=== PATIENT | female | born 1965 | race Two or more races ===

== ENCOUNTER 2017-09-20 13:10 | Outpatient (CLI) | payer OTHER ==
[~2017-09-20 13:10] MED LIST: ORPH100T PO; PERCOCET 5/321 UDTAB PO
== END 2017-09-20 13:30 | disposition home or self-care (01) ==
LOC: NUCLEAR 13:10
DX: I80.223 Phlebitis and thrombophlebitis of popliteal vein, bilateral (principal); D68.2 Hereditary deficiency of other clotting factors; D68.51 Activated protein C resistance; D68.52 Prothrombin gene mutation; D68.8 Other specified coagulation defects; D68.9 Coagulation defect, unspecified; J70.9 Respiratory conditions due to unspecified external agent

== ENCOUNTER 2017-10-02 10:15 | Outpatient (CLI) | payer OTHER | END 2017-10-02 10:20 | disposition home or self-care (01) | LOC: NUCLEAR 10:15 | DX: I73.9 Peripheral vascular disease, unspecified (principal); D68.52 Prothrombin gene mutation; D68.51 Activated protein C resistance; D68.62 Lupus anticoagulant syndrome; D68.8 Other specified coagulation defects; J70.9 Respiratory conditions due to unspecified external agent; I80.223 Phlebitis and thrombophlebitis of popliteal vein, bilateral; I68.2 Cerebral arteritis in other diseases classified elsewhere ==

== ENCOUNTER 2017-11-26 14:06 | Outpatient (CLI) | payer OTHER | END 2017-11-26 14:26 | disposition home or self-care (01) | LOC: MAMO-SONO 14:06 | DX: Z12.31 Encounter for screening mammogram for malignant neoplasm of breast (principal); I80.223 Phlebitis and thrombophlebitis of popliteal vein, bilateral; D68.2 Hereditary deficiency of other clotting factors; D68.51 Activated protein C resistance; D68.52 Prothrombin gene mutation; D68.62 Lupus anticoagulant syndrome; D68.8 Other specified coagulation defects; J70.9 Respiratory conditions due to unspecified external agent; M81.0 Age-related osteoporosis without current pathological fracture; Z01.01 Encounter for examination of eyes and vision with abnormal findings; N64.89 Other specified disorders of breast; Z12.39 Encounter for other screening for malignant neoplasm of breast ==

== ENCOUNTER 2018-04-02 11:32 | Emergency (ER) | payer OTHER ==
[~2018-04-02] VITALS: Ht 157.5 cm; Wt 43.5 kg
== END 2018-04-02 14:48 | disposition home or self-care (01) ==
LOC: ER 11:32
DX: M79.662 Pain in left lower leg (principal); M25.562 Pain in left knee

== ENCOUNTER 2018-04-05 08:31 | Outpatient (CLI) | payer OTHER | END 2018-04-05 09:23 | disposition home or self-care (01) | LOC: MRI 08:31 | DX: S83.92XA Sprain of unspecified site of left knee, initial encounter (principal); S83.402A Sprain of unspecified collateral ligament of left knee, initial encounter | CPT/HCPCS: 73721 ==

== ENCOUNTER 2018-05-22 09:39 | Outpatient (CLI) | payer OTHER | END 2018-05-22 09:49 | disposition home or self-care (01) | LOC: MAMO-SONO 09:39 | DX: Z12.31 Encounter for screening mammogram for malignant neoplasm of breast (principal); Z12.39 Encounter for other screening for malignant neoplasm of breast; Z01.01 Encounter for examination of eyes and vision with abnormal findings; I80.223 Phlebitis and thrombophlebitis of popliteal vein, bilateral; D68.2 Hereditary deficiency of other clotting factors; D68.51 Activated protein C resistance; D68.52 Prothrombin gene mutation; D68.8 Other specified coagulation defects; J70.9 Respiratory conditions due to unspecified external agent; M81.0 Age-related osteoporosis without current pathological fracture ==

== ENCOUNTER → 2019-05-21 | Outpatient (CLI) | payer OTHER | END | disposition home or self-care (01) | LOC: RAD 12:11 | DX: R13.19 Other dysphagia (principal); N63.11 Unspecified lump in the right breast, upper outer quadrant; R07.89 Other chest pain ==

== ENCOUNTER 2019-05-31 07:00 | Day surgery (SDC) | payer OTHER | END 2019-05-31 10:00 | disposition home or self-care (01) | LOC: AMB-ENDOS 07:00 | DX: K59.09 Other constipation (principal); K64.4 Residual hemorrhoidal skin tags; Z12.11 Encounter for screening for malignant neoplasm of colon ==

== ENCOUNTER 2019-09-01 11:06 | Outpatient (CLI) | payer OTHER | END 2019-09-01 11:08 | disposition home or self-care (01) | LOC: SONOGRAMA 11:06 | DX: M81.0 Age-related osteoporosis without current pathological fracture (principal); J70.9 Respiratory conditions due to unspecified external agent; M32.10 Systemic lupus erythematosus, organ or system involvement unspecified; D68.2 Hereditary deficiency of other clotting factors; D68.52 Prothrombin gene mutation; D68.8 Other specified coagulation defects; M54.5 Low back pain; M89.8X8 Other specified disorders of bone, other site; J01.90 Acute sinusitis, unspecified; J32.8 Other chronic sinusitis; J40 Bronchitis, not specified as acute or chronic; K80.12 Calculus of gallbladder with acute and chronic cholecystitis without obstruction ==

== ENCOUNTER 2019-09-04 12:53 | Outpatient (CLI) | payer OTHER | END 2019-09-04 13:02 | disposition home or self-care (01) | LOC: MAMO-SONO 12:53 | DX: Z12.31 Encounter for screening mammogram for malignant neoplasm of breast (principal); Z87.898 Personal history of other specified conditions; M81.0 Age-related osteoporosis without current pathological fracture; J70.8 Respiratory conditions due to other specified external agents; M32.10 Systemic lupus erythematosus, organ or system involvement unspecified; D68.2 Hereditary deficiency of other clotting factors; D68.52 Prothrombin gene mutation; D68.8 Other specified coagulation defects; M54.5 Low back pain; M89.8X8 Other specified disorders of bone, other site; J01.90 Acute sinusitis, unspecified; J32.8 Other chronic sinusitis; J40 Bronchitis, not specified as acute or chronic; K80.12 Calculus of gallbladder with acute and chronic cholecystitis without obstruction; N60.11 Diffuse cystic mastopathy of right breast; N60.12 Diffuse cystic mastopathy of left breast; N63.10 Unspecified lump in the right breast, unspecified quadrant; N63.20 Unspecified lump in the left breast, unspecified quadrant ==

== ENCOUNTER 2019-12-29 11:36 | Outpatient (CLI) | payer OTHER | END 2019-12-29 13:02 | disposition home or self-care (01) | LOC: NUCLEAR 11:36 | PROVIDERS: ATTEND Internal Medicine | DX: R54 Age-related physical debility (principal); R53.81 Other malaise; R94.31 Abnormal electrocardiogram [ECG] [EKG] ==

== ENCOUNTER 2019-12-29 20:02 | Emergency (ER) | payer OTHER ==
[~2019-12-29] VITALS: Ht 147.3 cm; Wt 49.9 kg
== END 2019-12-29 21:31 | disposition home or self-care (01) ==
LOC: ER 20:02
DX: R06.02 Shortness of breath (principal); Z03.818 Encounter for observation for suspected exposure to other biological agents ruled out

== ENCOUNTER 2019-12-30 07:30 | Outpatient (CLI) | payer OTHER | END 2019-12-30 07:32 | disposition home or self-care (01) | LOC: NUCLEAR 07:30 | PROVIDERS: ATTEND Internal Medicine Cardiovascular Disease | DX: R53.81 Other malaise (principal); R42 Dizziness and giddiness; R94.31 Abnormal electrocardiogram [ECG] [EKG] ==

== ENCOUNTER 2019-12-30 09:47 | Outpatient (CLI) | payer OTHER | END 2019-12-30 09:50 | disposition home or self-care (01) | LOC: TOM 09:47 | PROVIDERS: ATTEND Radiology Diagnostic Radiology | DX: I26.99 Other pulmonary embolism without acute cor pulmonale (principal) ==

== ENCOUNTER 2020-03-15 13:08 | Emergency (ER) | payer OTHER ==
[~2020-03-15] VITALS: Ht 157.5 cm; Wt 59.0 kg
[2020-03-15] MEDS ORDERED: XARELTO10 MG (14:18)
== END 2020-03-15 19:43 | disposition home or self-care (01) ==
LOC: ER 13:08 → EMR PED 13:08 → ER 13:45
DX: U07.1 COVID-19 (principal); J12.89 Other viral pneumonia

== ENCOUNTER 2020-03-20 10:45 | Emergency (ER) | payer OTHER ==
[~2020-03-20] VITALS: Ht 160 cm; Wt 59.0 kg
[~2020-03-20 10:45] MED LIST changes: +XARELTO10 MG
== END 2020-03-20 15:41 | disposition home or self-care (01) ==
LOC: ER 10:45
DX: U07.1 COVID-19 (principal)

== ENCOUNTER 2020-04-18 17:36 | Emergency (ER) | payer OTHER ==
[~2020-04-18] VITALS: Ht 160 cm; Wt 59.0 kg
== END 2020-04-18 18:57 | disposition home or self-care (01) ==
LOC: ER 17:36
DX: S93.401A Sprain of unspecified ligament of right ankle, initial encounter (principal); X50.9XXA Other and unspecified overexertion or strenuous movements or postures, initial encounter; X50.0XXA Overexertion from strenuous movement or load, initial encounter; Y93.89 Activity, other specified; Y92.89 Other specified places as the place of occurrence of the external cause; Y99.8 Other external cause status

== ENCOUNTER → 2020-04-28 07:01 | Outpatient (CLI) | payer OTHER | END | disposition home or self-care (01) | LOC: LAB 07:01 | PROVIDERS: ATTEND Internal Medicine | DX: D68.8 Other specified coagulation defects (principal); D68.61 Antiphospholipid syndrome; E72.12 Methylenetetrahydrofolate reductase deficiency ==

== ENCOUNTER → 2020-08-12 | Outpatient (CLI) | payer OTHER | END | disposition home or self-care (01) | LOC: MAMO-SONO 09:41 | PROVIDERS: ATTEND Emergency Medicine Pediatric Emergency Medicine | DX: Z12.31 Encounter for screening mammogram for malignant neoplasm of breast (principal); N64.59 Other signs and symptoms in breast; M81.0 Age-related osteoporosis without current pathological fracture; J70.8 Respiratory conditions due to other specified external agents; M32.10 Systemic lupus erythematosus, organ or system involvement unspecified; D68.2 Hereditary deficiency of other clotting factors; D68.52 Prothrombin gene mutation; D68.8 Other specified coagulation defects; M54.5 Low back pain; J01.90 Acute sinusitis, unspecified; M89.8X8 Other specified disorders of bone, other site; K80.12 Calculus of gallbladder with acute and chronic cholecystitis without obstruction; J40 Bronchitis, not specified as acute or chronic; J32.8 Other chronic sinusitis ==

== ENCOUNTER 2020-10-19 10:55 | Outpatient (CLI) | payer OTHER | END 2020-10-19 10:59 | disposition home or self-care (01) | LOC: NUCLEAR 10:55 | PROVIDERS: ATTEND Internal Medicine | DX: M81.0 Age-related osteoporosis without current pathological fracture (principal); M32.10 Systemic lupus erythematosus, organ or system involvement unspecified; M89.9 Disorder of bone, unspecified; M54.5 Low back pain; D68.2 Hereditary deficiency of other clotting factors; D68.9 Coagulation defect, unspecified ==

== ENCOUNTER → 2020-11-10 08:00 | Outpatient (CLI) | payer OTHER | END | disposition home or self-care (01) | LOC: LAB 08:00 | PROVIDERS: ATTEND Internal Medicine | DX: M81.0 Age-related osteoporosis without current pathological fracture (principal); J70.8 Respiratory conditions due to other specified external agents; M32.10 Systemic lupus erythematosus, organ or system involvement unspecified; D68.2 Hereditary deficiency of other clotting factors; D68.52 Prothrombin gene mutation; D68.8 Other specified coagulation defects; M54.5 Low back pain; M89.8X0 Other specified disorders of bone, multiple sites; J01.90 Acute sinusitis, unspecified; J32.8 Other chronic sinusitis; J40 Bronchitis, not specified as acute or chronic; K80.12 Calculus of gallbladder with acute and chronic cholecystitis without obstruction; K80.20 Calculus of gallbladder without cholecystitis without obstruction; Z12.31 Encounter for screening mammogram for malignant neoplasm of breast; N63.10 Unspecified lump in the right breast, unspecified quadrant; N60.11 Diffuse cystic mastopathy of right breast; N60.12 Diffuse cystic mastopathy of left breast; J09.X2 Influenza due to identified novel influenza A virus with other respiratory manifestations; J11.1 Influenza due to unidentified influenza virus with other respiratory manifestations; A49.3 Mycoplasma infection, unspecified site; J20.0 Acute bronchitis due to Mycoplasma pneumoniae; Z20.828 Contact with and (suspected) exposure to other viral communicable diseases; Z03.818 Encounter for observation for suspected exposure to other biological agents ruled out; E16.2 Hypoglycemia, unspecified; Z13.820 Encounter for screening for osteoporosis ==

== ENCOUNTER → 2021-01-04 | Outpatient (CLI) | payer OTHER | END | disposition home or self-care (01) | LOC: TOM 15:49 | PROVIDERS: ATTEND Internal Medicine | DX: R06.02 Shortness of breath (principal) ==

== ENCOUNTER → 2021-01-05 | Outpatient (CLI) | payer OTHER | END | disposition home or self-care (01) | LOC: TOM 09:24 | PROVIDERS: ATTEND Internal Medicine | DX: R06.02 Shortness of breath (principal); D68.2 Hereditary deficiency of other clotting factors; D68.52 Prothrombin gene mutation; J32.9 Chronic sinusitis, unspecified; J40 Bronchitis, not specified as acute or chronic; K80.12 Calculus of gallbladder with acute and chronic cholecystitis without obstruction ==

== ENCOUNTER 2021-02-23 14:31 | Emergency (ER) | payer OTHER ==
[~2021-02-23] VITALS: Ht 160 cm; Wt 60.8 kg
== END 2021-02-23 16:38 | disposition home or self-care (01) ==
LOC: ER 14:31
DX: Z20.822 Contact with and (suspected) exposure to COVID-19 (principal)

== ENCOUNTER 2021-03-10 08:00 | Outpatient (CLI) | payer OTHER | END 2021-03-10 08:30 | disposition home or self-care (01) | LOC: PPH VACUNA 08:00 | DX: Z23 Encounter for immunization (principal) ==

== ENCOUNTER 2021-07-07 10:03 | Emergency (ER) | payer OTHER ==
[~2021-07-07] VITALS: Ht 160 cm; Wt 59.9 kg
[2021-07-07] MEDS ORDERED: XARELTO20 MG PO (10:41)
== END 2021-07-07 13:29 | disposition home or self-care (01) ==
LOC: ER 10:03
DX: B34.9 Viral infection, unspecified (principal); Z20.822 Contact with and (suspected) exposure to COVID-19

== ENCOUNTER 2021-10-13 08:00 | Outpatient (CLI) | payer OTHER ==
[~2021-10-13 08:00] MED LIST changes: +XARELTO20 MG PO
== END 2021-10-13 08:30 | disposition home or self-care (01) ==
LOC: PPH VACUNA 08:00
PROVIDERS: ATTEND Emergency Medicine Pediatric Emergency Medicine
DX: Z23 Encounter for immunization (principal)

== ENCOUNTER 2022-02-21 10:22 | Outpatient (CLI) | payer OTHER | END 2022-02-21 11:02 | disposition home or self-care (01) | LOC: MAMO-SONO 10:22 | PROVIDERS: ATTEND Internal Medicine | DX: Z12.31 Encounter for screening mammogram for malignant neoplasm of breast (principal); N60.11 Diffuse cystic mastopathy of right breast; N60.12 Diffuse cystic mastopathy of left breast; N63.10 Unspecified lump in the right breast, unspecified quadrant ==

== ENCOUNTER 2022-07-03 10:41 | Outpatient (CLI) | payer OTHER | END 2022-07-03 10:51 | disposition home or self-care (01) | LOC: PPH VACUNA 10:41 | PROVIDERS: ATTEND Emergency Medicine Pediatric Emergency Medicine | DX: Z23 Encounter for immunization (principal) ==

== ENCOUNTER 2022-07-25 11:49 | Outpatient (CLI) | payer OTHER | END 2022-07-25 12:44 | disposition home or self-care (01) | LOC: TOM 11:49 | PROVIDERS: ATTEND Internal Medicine | DX: N60.11 Diffuse cystic mastopathy of right breast (principal); N60.12 Diffuse cystic mastopathy of left breast; N63.10 Unspecified lump in the right breast, unspecified quadrant ==

== ENCOUNTER 2022-10-26 13:21 | Outpatient (CLI) | payer OTHER | END 2022-10-26 13:33 | disposition home or self-care (01) | LOC: TOM 13:21 | PROVIDERS: ATTEND Internal Medicine | DX: J32.0 Chronic maxillary sinusitis (principal) ==

== ENCOUNTER 2022-11-14 07:32 | Outpatient (CLI) | payer OTHER | END 2022-11-14 09:34 | disposition home or self-care (01) | LOC: MAMO-SONO 07:32 | PROVIDERS: ATTEND Internal Medicine | DX: N60.11 Diffuse cystic mastopathy of right breast (principal); N60.12 Diffuse cystic mastopathy of left breast; N63.10 Unspecified lump in the right breast, unspecified quadrant; R22.2 Localized swelling, mass and lump, trunk ==

== ENCOUNTER 2022-11-28 07:20 | Outpatient (CLI) | payer OTHER | END 2022-11-28 07:45 | disposition home or self-care (01) | LOC: RAD 07:20 | PROVIDERS: ATTEND Internal Medicine | DX: Z01.818 Encounter for other preprocedural examination (principal); J32.1 Chronic frontal sinusitis; J32.0 Chronic maxillary sinusitis ==

== ENCOUNTER 2022-12-04 07:13 | Outpatient (CLI) | payer OTHER | END 2022-12-04 07:18 | disposition home or self-care (01) | LOC: LAB 07:13 | PROVIDERS: ATTEND Otolaryngology | DX: R05.8 Other specified cough (principal) ==

== ENCOUNTER 2022-12-04 16:43 | Emergency (ER) | payer OTHER ==
[~2022-12-04] VITALS: Ht 160 cm; Wt 61.2 kg
== END 2022-12-04 20:23 | disposition home or self-care (01) ==
LOC: ER 16:43
DX: U07.1 COVID-19 (principal); R51.9 Headache, unspecified; Z88.6 Allergy status to analgesic agent

== ENCOUNTER 2023-01-04 15:04 | Outpatient (CLI) | payer OTHER | END 2023-01-04 15:05 | disposition home or self-care (01) | LOC: LAB 15:04 | PROVIDERS: ATTEND Internal Medicine | DX: Z01.810 Encounter for preprocedural cardiovascular examination (principal); N60.11 Diffuse cystic mastopathy of right breast; N60.12 Diffuse cystic mastopathy of left breast; N63.10 Unspecified lump in the right breast, unspecified quadrant; D68.62 Lupus anticoagulant syndrome; D68.9 Coagulation defect, unspecified; I73.9 Peripheral vascular disease, unspecified; E88.81 Metabolic syndrome and other insulin resistance; Z13.820 Encounter for screening for osteoporosis ==

== ENCOUNTER 2023-01-08 07:04 | Outpatient (CLI) | payer OTHER | END 2023-01-08 08:12 | disposition home or self-care (01) | LOC: LAB 07:04 | DX: R05.9 Cough, unspecified (principal) ==

== ENCOUNTER 2023-05-11 08:11 | Outpatient (CLI) | payer OTHER | END 2023-05-11 09:45 | disposition home or self-care (01) | LOC: SONOGRAMA 08:11 | PROVIDERS: ATTEND Internal Medicine | DX: M71.21 Synovial cyst of popliteal space [Baker], right knee (principal) ==

== ENCOUNTER 2023-10-25 07:57 | Outpatient (CLI) | payer OTHER | END 2023-10-25 09:12 | disposition home or self-care (01) | LOC: TOM 07:57 | PROVIDERS: ATTEND Internal Medicine | DX: N60.11 Diffuse cystic mastopathy of right breast (principal); N60.12 Diffuse cystic mastopathy of left breast; N63.10 Unspecified lump in the right breast, unspecified quadrant; Z01.810 Encounter for preprocedural cardiovascular examination; D68.62 Lupus anticoagulant syndrome; D68.9 Coagulation defect, unspecified; I73.9 Peripheral vascular disease, unspecified; E88.810 Metabolic syndrome; K21.9 Gastro-esophageal reflux disease without esophagitis; J32.9 Chronic sinusitis, unspecified; N63.12 Unspecified lump in the right breast, upper inner quadrant; N63.11 Unspecified lump in the right breast, upper outer quadrant ==

== ENCOUNTER 2024-01-30 11:20 | Outpatient (CLI) | payer OTHER | END 2024-01-30 13:45 | disposition home or self-care (01) | LOC: RAD 11:20 | PROVIDERS: ATTEND Internal Medicine | DX: N60.11 Diffuse cystic mastopathy of right breast (principal); N60.12 Diffuse cystic mastopathy of left breast; N63.10 Unspecified lump in the right breast, unspecified quadrant; Z01.810 Encounter for preprocedural cardiovascular examination; D68.62 Lupus anticoagulant syndrome; D68.9 Coagulation defect, unspecified; I73.9 Peripheral vascular disease, unspecified; K21.9 Gastro-esophageal reflux disease without esophagitis; J32.9 Chronic sinusitis, unspecified; N39.0 Urinary tract infection, site not specified; Z20.822 Contact with and (suspected) exposure to COVID-19 ==

== ENCOUNTER 2024-07-01 08:32 | Outpatient (CLI) | payer OTHER | END 2024-07-01 08:50 | disposition home or self-care (01) | LOC: RAD 08:32 | PROVIDERS: ATTEND Internal Medicine | DX: J32.9 Chronic sinusitis, unspecified (principal); J40 Bronchitis, not specified as acute or chronic; J45.998 Other asthma; J42 Unspecified chronic bronchitis; N63.12 Unspecified lump in the right breast, upper inner quadrant; N63.11 Unspecified lump in the right breast, upper outer quadrant; Z12.31 Encounter for screening mammogram for malignant neoplasm of breast ==

== ENCOUNTER 2024-08-18 12:09 | Outpatient (CLI) | payer OTHER | END 2024-08-18 13:04 | disposition home or self-care (01) | LOC: TOM 12:09 | PROVIDERS: ATTEND Internal Medicine | DX: J32.9 Chronic sinusitis, unspecified (principal); J40 Bronchitis, not specified as acute or chronic; J45.998 Other asthma; J42 Unspecified chronic bronchitis; D68.52 Prothrombin gene mutation; D68.62 Lupus anticoagulant syndrome; D68.8 Other specified coagulation defects; D68.9 Coagulation defect, unspecified; I73.9 Peripheral vascular disease, unspecified; I80.223 Phlebitis and thrombophlebitis of popliteal vein, bilateral; N63.12 Unspecified lump in the right breast, upper inner quadrant; N63.11 Unspecified lump in the right breast, upper outer quadrant ==

== ENCOUNTER 2024-08-25 08:00 | Outpatient (CLI) | payer OTHER | END 2024-08-25 08:01 | disposition home or self-care (01) | LOC: NUCLEAR 08:00 | PROVIDERS: ATTEND Internal Medicine | DX: I73.9 Peripheral vascular disease, unspecified (principal); I80.223 Phlebitis and thrombophlebitis of popliteal vein, bilateral ==

== ENCOUNTER 2024-10-23 14:17 | Outpatient (CLI) | payer OTHER | END 2024-10-23 14:43 | disposition home or self-care (01) | LOC: TOM 14:17 | PROVIDERS: ATTEND Otolaryngology | DX: R09.81 Nasal congestion (principal); J34.2 Deviated nasal septum; J34.3 Hypertrophy of nasal turbinates ==

== ENCOUNTER → 2024-12-16 | Outpatient (CLI) | payer OTHER | END | disposition home or self-care (01) | LOC: MAMO-SONO 07:10 | PROVIDERS: ATTEND Obstetrics & Gynecology Maternal & Fetal Medicine | DX: N63 Unspecified lump in breast (principal); Z12.31 Encounter for screening mammogram for malignant neoplasm of breast; N64.4 Mastodynia; N60.11 Diffuse cystic mastopathy of right breast ==